=== PATIENT | male | born 1980 | race Two or more races ===

== ENCOUNTER 2016-08-28 06:59 | Emergency (ER) | payer SELFPAY ==
[2016-08-28 07:16] VITALS: TEMP 98; BMI 27.3
[2016-08-28] MEDS ORDERED: IBUPROFEN 400 MG TABLET (FP) PO ONE ×2 (07:42→07:43)
--- NOTE | 2016-08-28 07:52 | PDOC ---
History of Present Illness - General Chief Complaint: Injury Stated Complaint: RIGHT SHOULDER PAIN Time Seen by Provider: 08/28/16 07:35 History Source: Patient - History of Present Illness Occurred: reports: other (2 weeks ago) Upper Extremity Pain Location: right: shoulder Method of Injury: reports: fell Past History - Past Medical History Allergies/Adverse Reactions: Allergies Allergy/AdvReac Type Severity Reaction Status Date / Time No Known Allergies Allergy Unverified 08/28/16 07:12 Home Medications: Ambulatory Orders Ibuprofen [Motrin -] 600 mg PO TID #21 tablet 08/28/16 Other medical history: none - Psycho/Social/Smoking Cessation Hx Anxiety: No Suicidal Ideation: No Smoking History: Never smoked Have you smoked in the past 12 months: No Information on smoking cessation initiated: No Hx Alcohol Use: No Drug/Substance Use Hx: No Substance Use Type: Alcohol, Marijuana Review of Systems - Review of Systems Musculoskeletal: Yes: Joint Pain. No: Joint Swelling *Physical Exam - Vital Signs Last Vital Signs Temp Pulse Resp BP Pulse Ox 98.0 F 64 18 131/81 100 08/28/16 07:14 08/28/16 07:14 08/28/16 07:14 08/28/16 07:14 08/28/16 07:14 - Physical Exam General Appearance: Yes: Appropriately Dressed. No: Apparent Distress HEENT: positive: Normal Voice Neck: positive: Supple Respiratory/Chest: negative: Respiratory Distress Extremity: positive: Normal Inspection, Tender (to anterior GH joint, FROMI) Integumentary: positive: Dry, Warm Neurologic: positive: Fully Oriented, Alert, Normal Mood/Affect ED Treatment Course - RADIOLOGY Radiology Studies Ordered: Category Date Time Status SHOULDER-RIGHT [RAD] Stat Radiology 08/28/16 07:43 Ordered - Medications Given in the ED: ED Medications Discontinued Medications Generic Name Dose Route Start Last Admin Trade Name Freq PRN Reason Stop Dose Admin Ibuprofen 800 mg 08/28/16 07:42 08/28/16 07:45 Motrin - PO 08/28/16 07:43 800 mg ONCE ONE Administration Medical Decision Making - Medical Decision Making 08/28/16 07:46 36-year-old male, no significant history here with persistent right shoulder pain after injury. Patient states he fell at work 2 weeks ago and hit R asha directly, has been having pain to site that is worse with certain movements. Pt has continued to work but painful. No sensory changes. Has not been taking anything for pain. Patient well-appearing and stable with minimal tenderness to anterior GH joint, no shoulder deformity or swelling and full range of motion intact. Most likely sprain. X-ray rule out fracture. Pain controlled in ED 08/28/16 07:55 08/28/16 09:00 08/28/16 09:06 XR neg for fx. Pt better w/ motrin. Dc w/ ortho f/u *DC/Admit/Observation/Transfer Diagnosis at time of Disposition: Shoulder sprain Qualifiers: Encounter type: initial encounter Shoulder sprain type: unspecified sprain Laterality: right Qualified Code(s): S43.401A - Unspecified sprain of right shoulder joint, initial encounter - Discharge Dispostion Disposition: HOME Condition at time of disposition: Good - Prescriptions Prescriptions: Ibuprofen [Motrin -] 600 mg PO TID #21 tablet - Referrals Referrals: Jamaal Juarez MD [Staff Physician] - - Patient Instructions Printed Discharge Instructions: Shoulder Sprain Additional Instructions: Enriquez radiografa no mostr huesos rotos. Lo ms probable es que tengas un esguince. Ruslan Motrin segn sea necesario para el dolor y el seguimiento con el Dr. Jaurez, de ortopedia Print Language: ENGLISH - Post Discharge Activity Work/School Note: Back to Work
[2016-08-28 09:20] VITALS: BP 118/74; PULSE 63
== END 2016-08-28 09:18 | disposition home or self-care (01) ==
LOC: JER 06:59
DX: S43.401A Unspecified sprain of right shoulder joint, initial encounter (principal); W18.30XA Fall on same level, unspecified, initial encounter; Y93.89 Activity, other specified; Y92.89 Other specified places as the place of occurrence of the external cause; Y99.0 Civilian activity done for income or pay
CPT/HCPCS: 73030-TC-RT; 99282-25